=== PATIENT | female | born 1990 | race Caucasian/White ===

== ENCOUNTER 2018-10-17 10:17 | Emergency (ER) | payer OTHER ==
[~2018-10-17] VITALS: Wt 146.0 kg
[2018-10-17 10:21] VITALS: BP 129/76; PULSE 90; RESP 18
[2018-10-17] MEDS ORDERED: SOD CHLORIDE 0.9% 1,000 ML IV STA (11:13)
[2018-10-17] MEDS ORDERED: ONDANSETRON 4 MG INJ IV STA (11:13)
[2018-10-17] MEDS ORDERED: ONDA4TAB14 PO (13:21)
--- NOTE | 2018-10-17 15:01 | ERD ---
ER Documentation Chief Complaint Chief Complaint diarrhea , vomiting x 3 days HPI 28-year-old female presenting with diarrhea and vomiting x3 days. Patient has generalized body aches. She has had no changes in urination and describes her abdomen is crampy and bubbly. Has no other medical problems. NKDA. Surgical history denies. Social history states marijuana occasionally. ROS All systems reviewed and are negative except as per history of present illness. Medications Home Meds Active Scripts Ondansetron (Ondansetron Odt) 4 Mg Tab.rapdis, 4 MG PO Q6H PRN for NAUSEA AND/OR VOMITING, #10 TAB Prov:SHAWANDA HAM PA-C 10/17/18 Allergies Allergies: Coded Allergies: No Known Allergy (Unverified , 10/17/18) PMhx/Soc Medical and Surgical Hx: pt denies Medical Hx, pt denies Surgical Hx Hx Alcohol Use: No Hx Substance Use: No Hx Tobacco Use: No Smoking Status: Never smoker FmHx Family History: No diabetes, No coronary disease, No other Physical Exam Vitals Vital Signs Date Temp Pulse Resp B/P (MAP) Pulse Ox O2 O2 Flow FiO2 Time Delivery Rate 10/17/18 98.1 90 18 129/76 99 10:21 (93) Physical Exam GENERAL: The patient is well-appearing, well-nourished, in no acute distress HEENT: Atraumatic. Conjunctivae are pink. Pupils equal, round, and reactive to light. There is no scleral icterus. Tympanic membranes clear bilaterally. Oropharynx clear. NECK: C-spine is soft and supple. There is no meningismus. There is no cervical lymphadenopathy. CHEST: Clear to auscultation bilaterally. There are no rales, wheezes or rhonchi. HEART: Regular rate and rhythm. No murmurs, clicks, rubs or gallops. ABDOMEN:Soft, nontender and nondistended. Good bowel sounds. No rebound or guarding. No gross peritonitis. No gross organomegaly or masses. Result Diagram: 10/17/18 1125 10/17/18 1125 Results 24 hrs Laboratory Tests Test 10/17/18 11:25 10/17/18 11:49 10/17/18 12:57 White Blood Count 9.5 10^3/ul Red Blood Count 4.97 10^6/ul Hemoglobin 12.0 g/dl Hematocrit 38.9 % Mean Corpuscular Volume 78.3 fl Mean Corpuscular Hemoglobin 24.1 pg Mean Corpuscular 30.8 g/dl Hemoglobin Concent Red Cell Distribution Width 16.2 % Platelet Count 343 10^3/UL Mean Platelet Volume 9.9 fl Immature Granulocytes % 0.600 % Neutrophils % 70.2 % Lymphocytes % 19.6 % Monocytes % 9.1 % Eosinophils % 0.1 % Basophils % 0.4 % Nucleated Red Blood Cells % 0.0 /100WBC Immature Granulocytes # 0.060 10^3/ul Neutrophils # 6.7 10^3/ul Lymphocytes # 1.9 10^3/ul Monocytes # 0.9 10^3/ul Eosinophils # 0.0 10^3/ul Basophils # 0.0 10^3/ul Nucleated Red Blood Cells # 0.0 10^3/ul Sodium Level 142 mmol/L Potassium Level 3.6 mmol/L Chloride Level 101 mmol/L Carbon Dioxide Level 27 mmol/L Anion Gap 14 Blood Urea Nitrogen 12 mg/dl Creatinine 0.84 mg/dl Est Glomerular Filtrat > 60 mL/min Rate mL/min Glucose Level 104 mg/dl Calcium Level 9.3 mg/dl Total Bilirubin 0.4 mg/dl Direct Bilirubin 0.00 mg/dl Indirect Bilirubin 0.4 mg/dl Aspartate Amino 46 IU/L Transf (AST/SGOT) Alanine 45 IU/L Aminotransferase (ALT/SGPT) Alkaline Phosphatase 90 IU/L Total Protein 8.6 g/dl Albumin 4.5 g/dl Globulin 4.10 g/dl Albumin/Globulin Ratio 1.09 Lipase 123 U/L POC Beta HCG, Qualitative NEGATIVE Urine Color YELLOW Urine Clarity CLOUDY Urine pH 6.0 Urine Specific [place] 1.019 Urine Ketones TRACE mg/dL Urine Nitrite NEGATIVE mg/dL Urine Bilirubin NEGATIVE mg/dL Urine Urobilinogen NEGATIVE mg/dL Urine Leukocyte Esterase NEGATIVE Ashley/ul Urine Microscopic RBC 14 /HPF Urine Microscopic WBC 1 /HPF Urine Squamous Epithelial Cells MODERATE /HPF Urine Bacteria FEW /HPF Urine Mucus FEW /HPF Urine Hemoglobin 2+ mg/dL Urine Glucose NEGATIVE mg/dL Urine Total Protein NEGATIVE mg/dl Current Medications Medications Dose Sig/Phil Start Time Status Last (Trade) Ordered Route PRN Stop Time Admin Dose Reason Admin Sodium 1,000 ml @ Q1H STAT 10/17/18 DC 10/17/18 Chloride 1,000 mls/hr IV 11:13 11:37 10/17/18 12:12 Ondansetron 4 mg ONCE STAT 10/17/18 DC 10/17/18 HCl (Zofran IV 11:13 11:37 Inj) 10/17/18 11:14 Procedures/MDM MDM: 28-year-old female presenting with diarrhea. Patient blood work is within normal limits. I have low suspicion for abdominal emergencies exam is not concerning. Patient is discharged with supportive medications. She does not have findings consistent with urinary tract infection. Patient is discharged with strict ER precautions and told to follow-up with primary care within 1 to 2 days for close evaluation. Patient is told symptoms change or worsen to return immediately to the ER. All questions answered at discharge Departure Diagnosis: Primary Impression: Vomiting and diarrhea Condition: Stable Patient Instructions: Self-Care for Vomiting and Diarrhea Referrals: [facility] YOU HAVE RECEIVED A MEDICAL SCREENING EXAM AND THE RESULTS INDICATE THAT YOU DO NOT HAVE A CONDITION THAT REQUIRES URGENT TREATMENT IN THE EMERGENCY DEPARTMENT. FURTHER EVALUATION AND TREATMENT OF YOUR CONDITION CAN WAIT UNTIL YOU ARE SEEN IN YOUR DOCTORS OFFICE WITHIN THE NEXT 1-2 DAYS. IT IS YOUR RESPONSIBILITY TO MAKE AN APPOINTMENT FOR FOLOW-UP CARE. IF YOU HAVE A PRIMARY DOCTOR --you should call your primary doctor and schedule an appointment IF YOU DO NOT HAVE A PRIMARY DOCTOR YOU CAN CALL OUR PHYSICIAN REFERRAL HOTLINE AT IF YOU CAN NOT AFFORD TO SEE A PHYSICIAN YOU CAN CHOSE FROM THE FOLLOWING [facility] [id number] [facility] [facility] [address] [facility] [address] [facility] [address] [facility]. [facility] [address] [facility]. [facility] [address] Additional Instructions: FOLLOW UP WITH YOUR PRIMARY CARE PHYSICIAN TOMORROW.Return to this facility if you are not improving as expected. SHAWANDA HAM PA-C Oct 17, 2018 15:01
== END 2018-10-17 13:29 | disposition home or self-care (01) ==
LOC: FTE 10:17
DX: R11.10 Vomiting, unspecified (principal)
CPT/HCPCS: 36415; 80053; 81001; 81025; 83690; 85025; 96361; 96374; J2405; J7030; Z7502

== ENCOUNTER 2019-02-17 21:12 | Emergency (ER) | payer OTHER ==
[~2019-02-17] VITALS: Ht 170.2 cm; Wt 136.9 kg
[~2019-02-17 21:12] MED LIST: DIAZ5TAB PO; IBUP800T48 PO; ONDA4TAB14 PO
[2019-02-17 21:13] VITALS: Ht 170.2 cm; Wt 136.9 kg
[2019-02-17] MEDS ORDERED: KETOROLAC 30 MG INJ IM STA (21:45)
[2019-02-17] MEDS ORDERED: DIAZEPAM 5 MG TAB PO ONE (22:00)
[2019-02-17] MEDS ORDERED: HYDROmorphONE 2 MG/ML SYG IM STA (23:06)
[2019-02-17 23:30] VITALS: BP 129/67; PULSE 86; RESP 19
== END 2019-02-17 23:30 | disposition home or self-care (01) ==
LOC: E/R 21:12
DX: M54.5 Low back pain (principal)
CPT/HCPCS: 81003; 81025; 96372; J1170; J1885; Z7502; Z7610